=== PATIENT | female | born 1980 | race Caucasian/White ===

== ENCOUNTER → 2023-08-14 23:24 | Outpatient (CLI) | payer MEDICAID, SELFPAY ==
[2023-08-14 18:09] LABS: Adenovirus,PCR Not Detected (NotDetected); Coronavirus 19, PCR Not Detected (NotDetected); Coronavirus 229E Not Detected (NotDetected); Coronavirus NL63 Not Detected (NotDetected); Coronavirus OC43 Not Detected (NotDetected); Coronovirus HKU1,PCR Not Detected (NotDetected); Human Metapneumovirus Not Detected (NotDetected); Influenza A, PCR Not Detected (NotDetected); Influenza AH1, 2009 Not Detected (NotDetected); Influenza AH1, PCR Not Detected (NotDetected); Influenza AH3,PCR Not Detected (NotDetected); Influenza B, PCR Not Detected (NotDetected); Parainfluenza 1, PCR Not Detected (NotDetected); Parainfluenza 2, PCR Not Detected (NotDetected); Parainfluenza 3, PCR Not Detected (NotDetected); Parainfluenza 4, PCR Not Detected (NotDetected); Rhinovirus/Enterovirus Not Detected (NotDetected)
[2023-08-15 02:10] LABS: Respiratory Syncytial Virus Detected (NotDetected)
== END ==
LOC: LAB.DROPOF 23:25
PROVIDERS: Visit Provider Student in an Organized Health Care Education/Training Program
DX: R05.9 Cough, unspecified (principal); B97.4 Respiratory syncytial virus as the cause of diseases classified elsewhere
CPT/HCPCS: 87581; 87632; 87635; 87798

== ENCOUNTER 2025-08-06 13:55 | Emergency (ER) | payer MEDICAID, SELFPAY ==
[2025-08-06 14:03] VITALS: BP 144/78; PULSE 103; RESP 20; TEMP 36.8; O2SAT 97; BMI 32.3
--- NOTE | 2025-08-06 14:05 | ED_ITS ---
Discharge Plan Disposition Patient Disposition: Home, Self-Care Condition: Good Prescriptions Prescriptions: No Action buprenorphine-naloxone [Suboxone] 8-2 mg film 1 film buccal DAILY amoxicillin-pot clavulanate 875-125 mg tablet 1 tab PO BID 10 Days Qty: 20 0RF benzonatate 100 mg capsule 100 mg PO BID PRN (Reason: cough) Qty: 20 0RF prednisone 10 mg tablet 10 mg PO BID 5 Days Qty: 10 0RF Referrals Follow up/Referrals: Provider,Referral, MD [Primary Care Provider, Medical] - See instructions Activity Restrictions/Add. Instructions Additional Instructions/Restrictions: You were evaluated on an emergency basis. It is very important that you follow- up with your primary care provider and any specialist who we discussed within the next 2 days in order to better assess your health more comprehensively. For example, incidental findings on imaging or laboratory results that were performed today may be discovered, which do not require immediate medical care, but may impact your health in the future. If your symptoms worsen or persist, please return to the emergency department immediately for reassessment. Take all medications as prescribed. In queue for allowing me to participate in your health care, and I hope you feel better soon. Clinical Impressions Clinical Impression: Avulsion of skin of finger Instructions Patient Instructions: DI for Avulsion Laceration (Not Requiring Sutures) Print Language Print Language: Kuwaiti Discharge ED Provider: Malina Howard General Adult HPI <Precious Mai - Last Filed: 08/06/25 14:24> General Chief complaint: Wound/Laceration Stated complaint: [id number]- laceration to L pinky finger Time Seen by Provider: 08/06/25 14:05 History of Present Illness HPI narrative: 45-year-old female presents emergency department with complaints of laceration to her left fifth finger. She states that she was peeling potatoes when the radha slipped cutting her finger. She is unsure of her last tetanus booster. Related Data Home Medications ?Medication ?Instructions ?Recorded ?Confirmed buprenorphine 8 mg-naloxone 2 mg 1 film buccal DAILY 1 10/15/22 08/14/23 sublingual film (Suboxone) Previous Rx's ?Medication ?Instructions ?Recorded amoxicillin 875 mg-potassium 1 tab PO BID 10 days #20 tabs 08/14/23 clavulanate 125 mg tablet benzonatate 100 mg capsule 100 mg PO BID PRN cough #20 caps 08/14/23 prednisone 10 mg tablet 10 mg PO BID 5 days #10 tabs 08/14/23 Allergies Allergy/AdvReac Type Severity Reaction Status Date / Time No Known Allergies Allergy Verified 08/14/23 14:14 PFS <Precious Mai - Last Filed: 08/06/25 14:24> [facility] Disclaimer: The information contained in this section may have been updated after the patient was seen, as this information can be updated by other users. Medical History (Updated 08/06/25 @ 14:24 by Precious Mai) Bilateral acute otitis media Medical clearance for incarceration Surgical History (Updated 08/14/23 @ 14:14 by Gucci Zee) No significant past surgical history Family History (Updated 08/14/23 @ 14:14 by Gucci Zee) Other No significant family history Social History Smoking Status: Current every day smoker tobacco type: cigarettes packs per day: 1 alcohol intake: never substance use type: methamphetamine current occupational status: unemployed Travel in the last 8 weeks?: None Have you lived/traveled outside US in past 30 days?: No Contact w/someone who lives/traveled outside US past 30 days?: No Exposure to someone with infectious disease in past 14 days?: No Do you have a fever (greater than 100.4 F or 38 C)?: No Have you tested positive for COVID-19?: No Exposed to someone with COVID-19 in past 14 days?: No Do you have a sore throat?: No Do you have a cough?: No Do you have any weakness?: No Do you have any diarrhea?: No Are you experiencing any unusual bleeding?: No Do you have any muscle aches/pain?: No Do you have any abdominal pain?: No Are you experiencing loss of taste or smell?: No Other Medical History Have you received the Flu Vaccine for this season: No Have you received the Pneumonia Vaccine: No <Precious Mai - Last Filed: 08/06/25 14:24> ROS Obtained: Yes other Integumentary/Breasts Skin/Breast: Reports wounds Physical Exam <Precious Mai - Last Filed: 08/06/25 14:24> Narrative Physical exam: General: Awake, aware, in no acute distress HEENT: Normocephalic, no evidence of trauma CV: RRR, no murmurs, rubs, or gallops Pulm: CTA bilaterally with no rhonchi, rales, wheezes ABD: Nontender, no swelling, guarding, or rebound tenderness Psych, appropriate mood and affect Skin: Patient has an approximately 1.5 x 0.5 cm tissue avulsion to the lateral aspect of her left fifth finger minimal bleeding noted. Sensations intact with full range of motion. No obvious deformities present. General General appearance: alert Respiratory Respiratory exam: Present normal lung sounds bilaterally Cardiovascular Cardiovascular exam: Present regular rate Neurological Exam Neurological exam: Present alert Medical Decision Making <Precious Mai - Last Filed: 08/06/25 14:24> Medical Records Screening: Per USPSTF and CDC recommendations, given the prevalence of disease in our region, it is our hospital?s policy to screen for HIV and viral Hepatitis for all patients aged 18 and over and those with ongoing risk factors. Manish Inquiry Pt receiving controlled substance: No Vital Signs: 08/06/25 14:03 08/06/25 14:28 Temperature 98.2 F 98.2 F Temperature Source Oral Oral Pulse Rate 83 Pulse Rate [Right Radial] 103 H Respiratory Rate 20 18 Blood Pressure 153/83 H Blood Pressure [Right Arm] 144/78 H Blood Pressure Mean [Right Arm] 100 Blood Pressure Source Automatic Cuff Blood Pressure Source [Right Arm] Automatic Cuff Blood Pressure Position Sitting Blood Pressure Position [Right Arm] Sitting 02 Sat by Pulse Oximetry 97 Oxygen Delivery Method Room Air Room Air Orders (Tests/Meds): ED MEDICATIONS Discontinued Medications Generic Name Dose Route Start Last Admin Trade Name Freq PRN Reason Stop Dose Admin Tetanus/Reduced Diphtheria/Acell Pertussis 0.5 ml 08/06/25 14:19 08/06/25 14:31 Tet/Diphth/Pert-Adult 0.5ml Syringe IM 08/06/25 14:20 0.5 ml .ONCE ONE Administration Medical Decision Narrative: Initial impression of presenting illness: 45-year-old female presents emergency department complaints of laceration to her left fifth finger. She reports that she was peeling potatoes when the radha slipped cutting her finger. She is unsure of her last tetanus booster. Differential diagnosis includes but is not limited to: Laceration, abrasion, avulsion, fracture, tendon injury Patient arrives hemodynamically stable, afebrile, without respiratory distress with vital signs interpreted by myself. Initial physical exam reveals an approximate 1.5 x 0.5 cm tissue avulsion to the lateral aspect of patient's left fifth finger. Minimal bleeding noted. Sensations intact with 2+ pulses and brisk capillary refill. No obvious deformity. Patient with full range of motion. Initial diagnostic plan: Adacel booster, pressure dressing Disposition: Advised patient to avoid activities where her hand would be submerged in water such as bathing or hand washing dishes until the wound is healed. Recommended that she keep it covered and clean. She may use Tylenol and ibuprofen as needed for pain control. Instructed her to return to the emergency department or follow-up with her primary care provider with any signs of infection such as redness, swelling, drainage or fevers. Patient is agreeable to plan of care. <Malina Howard MD - Last Filed: 08/06/25 14:36> Vital Signs: 08/06/25 14:03 08/06/25 14:28 Temperature 98.2 F 98.2 F Temperature Source Oral Oral Pulse Rate 83 Pulse Rate [Right Radial] 103 H Respiratory Rate 20 18 Blood Pressure 153/83 H Blood Pressure [Right Arm] 144/78 H Blood Pressure Mean [Right Arm] 100 Blood Pressure Source Automatic Cuff Blood Pressure Source [Right Arm] Automatic Cuff Blood Pressure Position Sitting Blood Pressure Position [Right Arm] Sitting 02 Sat by Pulse Oximetry 97 Oxygen Delivery Method Room Air Room Air Orders (Tests/Meds): ED MEDICATIONS Discontinued Medications Generic Name Dose Route Start Last Admin Trade Name Freq PRN Reason Stop Dose Admin Tetanus/Reduced Diphtheria/Acell Pertussis 0.5 ml 08/06/25 14:19 08/06/25 14:31 Tet/Diphth/Pert-Adult 0.5ml Syringe IM 08/06/25 14:20 0.5 ml .ONCE ONE Administration Medical Decision Narrative: Initial impression of presenting illness: 45-year-old female presents emergency department complaints of laceration to her left fifth finger. She reports that she was peeling potatoes when the radha slipped cutting her finger. She is unsure of her last tetanus booster. Differential diagnosis includes but is not limited to: Laceration, abrasion, avulsion, fracture, tendon injury Patient arrives hemodynamically stable, afebrile, without respiratory distress with vital signs interpreted by myself. Initial physical exam reveals an approximate 1.5 x 0.5 cm tissue avulsion to the lateral aspect of patient's left fifth finger. Minimal bleeding noted. Sensations intact with 2+ pulses and brisk capillary refill. No obvious deformity. Patient with full range of motion. Initial diagnostic plan: Adacel booster, pressure dressing Disposition: Advised patient to avoid activities where her hand would be submerged in water such as bathing or hand washing dishes until the wound is healed. Recommended that she keep it covered and clean. She may use Tylenol and ibuprofen as needed for pain control. Instructed her to return to the emergency department or follow-up with her primary care provider with any signs of infection such as redness, swelling, drainage or fevers. Patient is agreeable to plan of care. I was consulted by the JACY, and we discussed the complexity of problems being addressed. I approved the treatment and management plan for this patient's care in the emergency department, thus performing a substantial portion of the medical decision making. Malina Howard MD Critical Care <Precious Mai - Last Filed: 08/06/25 14:24> Critical Care Time Critical Care Time: No
--- NOTE | 2025-08-06 14:07 | PC.NURSE ---
finger laceration soaking in water and hibiclens at this time
--- OUTSIDE RECORDS SUMMARY | 2025-08-06 14:23 | XMS_ITS | Clinical Summary ---
[facility] [address] [place] [address] Care Team Providers Care Aircraft Assembler Name Role Phone Provider, No Known Primary Care Provider [phone] Allergies No known active allergies Medications methocarbamol (ROBAXIN) 750 MG tablet Take 750 mg by mouth Every 8 (Eight) Hours As Needed for Muscle Spasms. Active hydrOXYzine pamoate (VISTARIL) 50 MG capsule Take 50 mg by mouth Every 6 (Six) Hours As Needed for Itching. Active nicotine (NICODERM CQ) 14 MG/24HR patch Place 1 patch on the skin as directed by provider Daily. 12/01/2021 Active pantoprazole (PROTONIX) 40 MG EC tablet Take 1 tablet by mouth Every Morning. 12/01/2021 Active Active Problems Problem Noted Date Diagnosed Date Bacteremia 11/22/2021 Social History Tobacco Use Types Packs/Day Years Used Date Smoking Tobacco: Every Day Cigarettes Smokeless Tobacco: Never Alcohol Use Standard Drinks/Week Comments Not Currently 0 (1 standard drink = 0.6 oz pur e alcohol) AUDIT-C Answer Date Recorded Q1: How often do you have a drink containing alcohol? Never 11/22/2021 Q2: How many drinks containi ng alcohol do you have on a typical day when you are drinking? Patient does not drink Q3: How often do you have si x or more drinks on one occasion? Never 11/22/2021 Abuse Screen Answer Date Recorded Unsafe at Home or Work/School Not on file Feels Threatened by Someone? Not on file 06/2023 Does Anyone Keep You from Co ntacting Others or Doint Things Outside the Home? Not on file 05/30/2023 Physical Sign of Abuse Present Not on file 1 Housing Stability Answer Date Recorded Current Living Arrangements Not on file 05/20 Potentially Unsafe Housing Conditions Not on salena e 05/30/2023 Family and Community Support Answer Freddie e Recorded Help with Day-to-Day Activities Not on file 05/30/2023 Lonely or Isolated Not on file 05/30/2023 Employment Answer Date Recorded Do you want help finding or keeping work or a alexys b? Not on file 05/30/2023 Disabilities Answer Date Recorded Concentrating, Remembering, or Making Decisions Difficulty Not on file 05/30/2023 Doing Errands Independently Difficulty Not on fi le 05/30/2023 Education Answer Date Recorded Help with school or training? Not on file Preferred Language Not on file 05/30/2023 Comments No Sex and Gender Information Value Date Recorded Sex Assigned at Not on file Legal Sex Female 9:24 PM EDT Gender Identity Not on file Sexual Orientation Not on file Last Filed Vital Signs Vital Sign Reading Time Taken Comments Blood Pressure 122/66 11/30/2021 3:00 PM EDT Pulse 108 11/30/2021 3:00 PM EDT Temperature 36.8 C (98.3 F) 11/30/2021 3:00 PM EDT Respiratory Rate 18 11/30/2021 3:00 PM EDT Oxygen Saturation 96% 11/30/2021 3:00 PM EDT Inhaled Oxygen Concentration - - Weight 65.8 kg (145 lb) 12/01/2021 11:00 AM EDT Height 167.6 cm (5' 6 ) 12/01/2021 11:00 AM EDT Body Mass Index 23.4 12/01/2021 11:00 AM EDT Plan of Treatment Health Maintenance Due Date Last Done Comments ANNUAL PHYSICAL 1980 Annual Gynecologic Pelvic an d Breast Exam 1980 TDAP/TD VACCINES (1 - Tdap) 02/21/2000 MAMMOGRAM 2021 INFLUENZA VACCINE 03/20/2025 HEPATITIS C SCREENING Completed 11/28/2021 Pneumococcal Vaccine 0-49 Aged Out No longer eligible based on patient's age to complete this topic Procedures Procedure Name Priority Date/Time Associated Diagnosis Comments HEPATITIS PANEL, ACUTE Routine 11/28/2021 10:42 AM EDT from Last 3 Months or Most Recently Relevant to Health Maintenance Results * (ABNORMAL) Hepatitis Panel, Acute (11/28/2021 10:42 AM EDT) Hepatitis B Surface Ag Non-Reacti ve Non-Reacti ve 11/28/2021 12:42 PM EDT [facility] Hep A IgM Non-Reacti ve Non-Reacti ve 11/28/2021 12:42 PM EDT [facility] Hep B C IgM Reactive(A ) Non-Reacti ve 11/28/2021 12:42 PM EDT [facility] Hepatitis C Ab Reactive(A ) Non-Reacti ve 11/28/2021 12:42 PM EDT [facility] Blood Venipuncture / Unknown 11/28/2021 10:42 AM EDT 11/28/2021 11:23 AM EDT Narrative [facility] - 11/28/2021 12:42 PM EDT Results may be falsely decreased if patient taking Biotin. us Keisha Beth MD LAB BLOOD ORDERABLES Final Result [facility]
[address] [id number], [phone] from Last 3 Months or Most Recently Relevant to Health Maintenance Additional Health Concerns Infection Onset Date Last Indicated MRSA No Isolation this Admit Comment:MRSA 11/20/21 11/23/21 11/24/21 Blood Culture ID, PCR - Blood, Hand, Left MRSA 11/20/21 11/26/21 11/25/21 Blood Culture - Blood, Hand, Left 11/26/21 Debbie Liang RN Blood / Arm, Right Not isolating any MRSA at this time. 11/26/2021 11/26/2021 Insurance * Guarantor: [employer]lyn [employer] Account Type Relation to Patient Date of Phone Billing Address Personal/Family Self [address] [place] [id number] [employer] Member Subscriber Plan / Payer (Ef fective 2020-Present) Name:[employer]lyn [employer] Relation to Subscriber:Self Name:Jaclyn Blood Payer ID:[id number] (NAIC) Type:Not on file Address: [address] [address] [place] [address] [employer] Member Subscriber Plan / Payer (Ef fective 2021-Present) Name:Jaclyn Blood Relation to Subscriber:Self Name:Jaclyn Blood Payer ID:Not on file Group ID:[id number] Type:Not on file Address: [address] [address] [place] [address] [employer] Member Subscriber Plan / Payer (Ef fective 2021-Present) Name:Jaclyn Blood Relation to Subscriber:Self Name:Jaclyn Blood Payer ID:Not on file Group ID:Not on file Type:Not on file Address: [address] [address] [place] [address] Advance Directives * CPR (Attempt to Resuscitate) (Latest Code Status on File) Date Activated Date Inactivated Comments 11/30/2021 7:37 PM 12/23/2021 4:09 PM Question Answer Comments Code Status (Patient has no pulse and is not breathing): CPR (Attempt to Resuscitate) Medical Interventions (Patie nt has pulse or is breathing): Full Support Level Of Support Discussed With: Patient * CPR (Attempt to Resuscitate) Date Activated Date Inactivated Comments 11/22/2021 4:31 PM 11/30/2021 5:25 PM Question Answer Comments Code Status (Patient has no pulse and is not breathing): CPR (Attempt to Resuscitate) Medical Interventions (Patie nt has pulse or is breathing): Full Support Care Teams Aircraft Assembler Relationship Specialty Start Date End Date Provider, No Known [facility] [place] [address] PCP - General 02/11/16
[2025-08-06 14:28] VITALS: BP 153/83; PULSE 83; RESP 18; TEMP 36.8; O2SAT 100
[2025-08-06] MEDS: TET/DIPHTH/PERT-ADULT 0.5ML SYRINGE 0.5 ML IM (14:31)
== END 2025-08-06 14:34 | disposition home or self-care (01) ==
PROVIDERS: Emergency Provider Student in an Organized Health Care Education/Training Program
DX: S61.207A Unspecified open wound of left little finger without damage to nail, initial encounter (principal); W26.8XXA Contact with other sharp object(s), not elsewhere classified, initial encounter
CPT/HCPCS: 90471; 90715; 99283